=== PATIENT | female | born 1985 | race Caucasian/White ===

== ENCOUNTER 2018-07-07 21:20 | Inpatient (IN) ==
--- NOTE | 2018-07-07 22:33 | ED ---
History of Present Illness Primary Care Physician: NOT REQUIRED Chief Complaint: flu/abd pain History of Present Illness: Pt is a 32y/o @ 37.0wks. She has PNC with Dr. Sethi. She presented to the hospital this evening for reported 100.5 temp and flu-like symptoms including myalgias. While in the ED, she reported abdominal pain. She was brought to triage and experienced SROM. She reports +FM. No VB. She has a h/ o PTD @ 34wks and was taking 17-OHP this . She denies any other complications with either . GBS is unknown. Weeks Gestation:: 37 Para: 1 : 3 Review of Systems All other systems reviewed negative except as stated in HPI PMFSH - Medical / Surgical Hx Neg / Unobtainable Medical Problems Denied: Yes Surgical History: No Previous Surgery - Social History I have reviewed the patient's Social History: Yes - Tobacco History Second Hand Smoke Exposure: No Tobacco Use In Past 30 Days: No Smoking Status: Never smoker - Alcohol History How Often Do You Have a Drink Containing Alcohol: Never - Substance Use History Substance History: No History of Abuse Medications and Allergies Allergies Allergy/AdvReac Type Severity Reaction Status Date / Time No Known Allergies Allergy Verified 07/07/18 22:28 Home Medications Medication Instructions Recorded Confirmed Type vit-iron fum-folic ac 1 tab PO DAILY 07/07/18 07/07/18 History [ Vitamin] Exam Vital signs: Vital Signs 07/07/18 21:59 Temperature 99.1 F Pulse Rate 92 H Blood Pressure 134/67 Narrative: General: well developed, well nourished, no acute distress HEENT: normocephalic atraumatic, extraocular movements intact, neck supple Abdomen: soft, gravid, nontender, nondistended Uterus: fundus term Extremities: full range of motion Skin: normal coloration, no rashes, no suspicious skin lesions noted Neurologic: cranial nerves 2-12 grossly intact, normal muscle tone, normal gait Psychiatric: normal mood and affect, appropriate FHTs: 150s, no accels, subtle late decelerations, moderate variability Blum: ctx q2m Cvx: /-3 Assessment and Plan - Plan 32y/o @ 37.0wks with labor, SROM, and flu-like symptoms. -- admit to L&D -- FHTs with subtle lates but moderate variability, resuscitate with IVF per inclusion internship MD -- rapid GBS collected -- pt afebrile in triage, monitor closely, consider rapid flu swab if fever -- CEFM/toco, CLD, epidural/hill PRN Dispo: Case d/w Dr. Deal, inclusion internship, who agreed with plan of care. Courtesy orders placed. He will assume care of the patient. Discharge Plan - Discharge Disposition Patient Disposition: ED Admit(ED Internal Use Only) - Physicians Team ED Provider: Umang Quintero V Primary Care Provider: NOT REQUIRED, - Rxs /Orders / Referrals /Forms Prescriptions: No Action vit-iron fum-folic ac [ Vitamin] 27 mg iron- 0.8 mg Tablet 1 tab PO DAILY - Discharge Instructions Print Language: Croatian
[2018-07-07] MEDS ORDERED: Naloxone Inj 0.4 MG/ML Vial IV.PUSH PRN (22:34)
[2018-07-07] MEDS ORDERED: Sod Chloride 0.9% Inj 1,000 ML IV.CONT PRN (22:34)
[2018-07-07] MEDS ORDERED: Sodium Chlor 0.9% Inj 500 ML IV.SIG PRN (22:34)
[2018-07-07] MEDS ORDERED: Oxytocin 30 Units/500ml Premix 30 UNITS/500 ML BAG IV.SIG ONE (22:34)
[2018-07-07] MEDS ORDERED: fentaNYL Citrate Inj 100 MCG/2 ML Ampul IV.PUSH PRN ×2 (22:34)
[2018-07-07] MEDS ORDERED: Citric Acid/Sodium Citrate Liq 30 ML UDC PO SCH (22:45)
[2018-07-07 23:13] LABS: Bacteria,Urine Rare /hpf; Bilirubin,Urine Negative (Negative); Clarity,Urine Clear (Clear); Color,Urine Straw (Yellw/Straw); Glucose,Urine (UA) Negative (Negative); Leukocyte Esterase,Urine Negative (Negative); Nitrite,Urine Negative (Negative); Specific Gravity,Urine 1.008 (1.002-1.035); Squamous Epithelial Cell,Urine <1 /hpf (0-5)
[2018-07-07 23:17] LABS: Amphetamine Urine With Conf Neg (Neg); Baso % (Auto) 0.1 % (0.0-2.0); Benzodiazepine Urine With Conf Neg (Neg); Cocaine Urine With Conf Neg (Neg); Eos # (Auto) 0.2 th/mm3 (0.0-0.4); Eos % (Auto) 1.2 % (0.0-4.0); Hematocrit 29.4 % (35.0-46.0); Hemoglobin 10.4 gm/dL (11.6-15.3); Lymph # (Auto) 1.5 th/mm3 (1.0-4.8); Lymph % (Auto) 7.5 % (9.0-44.0); Mean Corpuscular HGB Conc 35.3 % (32.0-36.0); Mean Corpuscular Hemoglobin 29.5 pg (27.0-34.0); Mean Corpuscular Volume 83.5 fL (80.0-100.0); Mean Platelet Volume 9.3 fL (7.0-11.0); Mono # (Auto) 2.1 th/mm3 (0.0-0.9); Mono % (Auto) 10.5 % (0.0-8.0); Neut # (Auto) 15.9 th/mm3 (1.8-7.7); Neut % (Auto) 80.7 % (16.0-70.0); Opiates Urine With Conf Neg (Neg); Platelet Count 273 th/mm3 (150-450); Red Blood Count 3.52 mil/mm3 (4.00-5.30); White Blood Count 19.7 th/mm3 (4.0-11.0)
[2018-07-07 23:19] LABS: Cannabinoid Urine With Conf Neg (Neg)
[2018-07-08] MEDS ORDERED: Bisacodyl 10 MG Supp RECTAL PRN (00:55)
[2018-07-08] MEDS ORDERED: Naloxone Inj 0.4 MG/ML Vial IV.PUSH PRN (00:55)
[2018-07-08] MEDS ORDERED: Zolpidem Tartrate 5 MG Tablet PO PRN (00:55)
[2018-07-08] MEDS ORDERED: Oxytocin 30 Units/500ml Premix 30 UNITS/500 ML BAG IV.CONT PRN (00:55)
[2018-07-08] MEDS ORDERED: Benzocaine 20% Top Spray 60 ML Can TOPICAL PRN (00:55)
[2018-07-08] MEDS ORDERED: Acetaminophen 325 MG Tablet PO PRN ×2 (00:55)
[2018-07-08] MEDS ORDERED: Witch Hazel 50%/Glyderin 12.5% 40 Pad Jar RECTAL PRN (00:55)
--- NOTE | 2018-07-08 01:02 | P.OP ---
Surgeon: Dilshad Deal MD Operation and Findings: Preoperative diagnosis: 1. Intrauterine at 37 weeks and 1 day 2. Labor 3. History of spontaneous delivery Postop diagnosis 1. Same as above status post Procedure 1. Term spontaneous vaginal delivery Surgeon Dr. Dilshad Deal Supervisor [employer] Mixing: [facility] labor and delivery nursing staff Findings: 1. Viable male at 12:35 AM, Apgars 8 and 9, weight 3060 g. 2. Intact placenta 3 vessel cord at 12:41 AM 3. Second-degree perineal laceration Anesthesia: 5 cc of lidocaine with epinephrine for perineal repair, no epidural Specimen: Placenta to pathology, secondary to report of maternal fever and flulike symptoms Estimated blood loss: 300 cc Fluid replacement: Lactated Ringer's and Pitocin Urine output: None recorded DVT prophylaxis: None required Antibiotics: None required Counts: correct x2 Time out done: yes Disposition: Stable to PACU Indications: 32-year-old who presented for flulike symptoms and a reported fever of 101 at home, she spontaneously ruptured in triage and was admitted and progressed without augmentation to complete, I was called to the room when she felt the urge to push. The bed was broken down and prepared for delivery. Description of procedure: The patient began pushing after the bed was broken down, the head upon was allowed to restitute naturally for delivery with a supported perineum, with gentle downward guidance the anterior shoulder was delivered followed by gentle upper guidance for the posterior shoulder, the torso and lower extremities were delivered with ease and with continued perineal support. The infant had spontaneous cry and was placed on mom's abdomen for skin to skin contact, we allowed delayed cord clamping. After the cord was clamped and cut, cord blood was obtained. Pitocin was bolused and with fundal massage the placenta was delivered, there is minimal uterine bleeding and uterus was firm. The perineum, vagina and cervix were inspected and found a second-degree that was repaired with 3-0 Vicryl in standard fashion after lidocaine was injected for anesthesia. The patient tolerated the procedure well and was left in the birthing suite with her .
--- NOTE | 2018-07-08 07:30 | P.PNOB ---
Subjective Post day: 0 Interval history: Doing well, pain controlled, no flulike symptoms, resolved after delivery, vaginal bleeding less than menses Objective Vital Signs/I&O: Vital Signs 07/07/18 21:59 07/07/18 22:00 07/08/18 00:41 Temperature 99.1 F 98.1 F Pulse Rate 92 H 100 H Respiratory Rate 20 18 Blood Pressure 134/67 108/84 07/08/18 00:45 07/08/18 00:57 07/08/18 01:18 Temperature Pulse Rate 107 H 95 H Respiratory Rate 18 Blood Pressure 142/63 H 115/54 L 07/08/18 01:30 07/08/18 01:45 07/08/18 02:42 Temperature 98.3 F Pulse Rate 91 H 89 Respiratory Rate Blood Pressure 117/59 L 116/65 07/08/18 03:00 Temperature 97.6 F Pulse Rate 103 H Respiratory Rate 18 Blood Pressure 114/70 Intake & Output 07/07/18 07/08/18 07/08/18 18:59 06:59 18:59 Intake Total 500 / 500 Balance 500 / 500 Weight 70.307 kg Intake: IV 500 / 500 Pitocin 30 Units/NS 500 ml 500 / 500 Premix 30 units In 500 ml @ 999 mls/hr IV.SIG BOLUS ONE Rx#: [id number] Result Diagrams: 07/07/18 22:30 Objective Remarks: GENERAL: Well-nourished, well-developed patient. CARDIOVASCULAR: Regular rate and rhythm without murmurs, gallops, or rubs. RESPIRATORY: Breath sounds equal bilaterally. No accessory muscle use. ABDOMEN/GI: Abdomen soft, non-tender. Fundus: Firm, non-tender at umbilicus. GENITOURINARY: Light to moderate bleeding. EXTREMITIES: No cyanosis or edema, non-tender, without signs of DVT. Medications and IVs: Active Medications Acetaminophen (Tylenol) 650 mg PO Q4H PRN PRN Reason: PAIN SCALE 1 TO 2 Acetaminophen (Tylenol) 650 mg PO Q4H PRN PRN Reason: FEVER Al Hydroxide/Mg Hydroxide (Milk Of Magnesia Liq) 30 ml PO Q12H PRN PRN Reason: Mild Constipation Benzocaine (Americaine 20% Top [place]) 1 spray TOPICAL Q4H PRN PRN Reason: For Perineum Discomfort Last Admin: 07/08/18 03:04 Dose: 1 spray Bisacodyl (Dulcolax Supp) 10 mg RECTAL DAILY PRN PRN Reason: SEVERE CONSITIPATION Diphtheria/Pertussis/Tetanus Vacc (Boostrix Vaccine Inj) 0.5 ml IM .ONCE ONE Stop: 07/08/18 16:01 Oxytocin (Pitocin 30 Units/Ns 500 Ml Premix) 30 units in 500 mls @ 100 mls/hr IV.CONT UNSCH PRN PRN Reason: Heavy bleeding Ibuprofen (Motrin) 800 mg PO Q8H PRN PRN Reason: For Cramping Last Admin: 07/08/18 07:10 Dose: 800 mg Lactulose (Lactulose Liq) 30 ml PO DAILY PRN PRN Reason: SEVERE CONSITIPATION Measles/Mumps/Rubella Vaccine Live (M-M-R Ii Vaccine Inj) 0.5 ml SQ .ONCE ONE Stop: 07/08/18 16:01 Naloxone HCl (Narcan Inj) 0.1 mg IV.PUSH Q2M PRN PRN Reason: for opiate reversal Ondansetron HCl (Zofran Odt) 4 mg PO Q6H PRN PRN Reason: NAUSEA OR VOMITING Vit/Calcium/Iron/Folic Ac (Stuartnatal Plus 3) 1 tab PO DAILY JANE Senna/Docusate Sodium (Maida-Colace) 1 tab PO BID JANE Sennosides (Senokot) 17.2 mg PO Q12H PRN PRN Reason: Moderate Constipation Sodium Chloride (Ns Flush) 2 ml IV.FLUSH BID JANE Sodium Chloride (Ns Flush) 2 ml IV.FLUSH PRN PRN PRN Reason: FLUSH AFTER USING IV ACCESS Witch Ayse/Glycerin (Tucks Pads) 1 applicatio RECTAL QID PRN PRN Reason: HEMORRHOIDS Last Admin: 07/08/18 03:04 Dose: 1 applicatio Zolpidem Tartrate (Ambien) 5 mg PO HS PRN PRN Reason: SLEEP Assessment and Plan - Plan 32-year-old 112 status post at 37 weeks and 1 day. 1. day #0: Doing well, anticipate discharge home the next 48 hours. in NICU due to tachypnea and hypoglycemia. However she states he is doing better. Discussed precautions expectations and follow-up. -Male , desires circumcision, she states she paid, will confirm tomorrow.
[2018-07-08] MEDS: Prenatal Vit/Ca/Iron/Folic Acid Tablet PO SCH (08:57)
[2018-07-08] MEDS: Senna/Docusate Sodium 8.6/50 MG Tablet PO SCH ×2 (08:58→23:32)
[2018-07-08] MEDS ORDERED: Measles/Mumps/Rubella Vaccine Inj 0.5 ML Vial SQ ONE (16:00)
[2018-07-08] MEDS ORDERED: Diphtheria/Tetanus/Pertussis Vaccine Inj 0.5 ML Syringe IM ONE (16:00)
[2018-07-08] MEDS ORDERED: Dextromethorphan Syrup 7.5 MG/5 ML UDC PO PRN (20:18)
--- NOTE | 2018-07-09 08:14 | P.PNOB ---
Subjective Post day: 1 Interval history: Doing well post unremarkable delivery in NICU for grunting. Would like discharge if baby remains in NICU and to follow in stay close. Pumping well using ice for perineum Objective Vital Signs/I&O: Vital Signs 07/08/18 19:40 Temperature 98.3 F Pulse Rate 81 Respiratory Rate 18 Blood Pressure 133/71 Result Diagrams: 07/07/18 22:30 Objective Remarks: GENERAL: Well-nourished, well-developed patient. CARDIOVASCULAR: Regular rate and rhythm without murmurs, gallops, or rubs. RESPIRATORY: Breath sounds equal bilaterally. No accessory muscle use. ABDOMEN/GI: Abdomen soft, non-tender. Fundus: Firm, non-tender at umbilicus. GENITOURINARY: Light to moderate bleeding. EXTREMITIES: No cyanosis or edema, non-tender, without signs of DVT. Medications and IVs: Active Medications Acetaminophen (Tylenol) 650 mg PO Q4H PRN PRN Reason: PAIN SCALE 1 TO 2 Acetaminophen (Tylenol) 650 mg PO Q4H PRN PRN Reason: FEVER Al Hydroxide/Mg Hydroxide (Milk Of Magnesia Liq) 30 ml PO Q12H PRN PRN Reason: Mild Constipation Benzocaine (Americaine 20% Top [place]) 1 spray TOPICAL Q4H PRN PRN Reason: For Perineum Discomfort Last Admin: 07/08/18 03:04 Dose: 1 spray Bisacodyl (Dulcolax Supp) 10 mg RECTAL DAILY PRN PRN Reason: SEVERE CONSITIPATION Dextromethorphan HBr (Robitussin La Pediatric Cough Liq) 20 mg PO Q4H PRN PRN Reason: COUGH Last Admin: 07/08/18 23:33 Dose: 7.5 mg Oxytocin (Pitocin 30 Units/Ns 500 Ml Premix) 30 units in 500 mls @ 100 mls/hr IV.CONT UNSCH PRN PRN Reason: Heavy bleeding Ibuprofen (Motrin) 800 mg PO Q8H PRN PRN Reason: For Cramping Last Admin: 07/08/18 15:53 Dose: 800 mg Lactulose (Lactulose Liq) 30 ml PO DAILY PRN PRN Reason: SEVERE CONSITIPATION Naloxone HCl (Narcan Inj) 0.1 mg IV.PUSH Q2M PRN PRN Reason: for opiate reversal Ondansetron HCl (Zofran Odt) 4 mg PO Q6H PRN PRN Reason: NAUSEA OR VOMITING Vit/Calcium/Iron/Folic Ac (Stuartnatal Plus 3) 1 tab PO DAILY [facility] Last Admin: 07/08/18 08:57 Dose: 1 tab Senna/Docusate Sodium (Maida-Colace) 1 tab PO BID [facility] Last Admin: 07/08/18 23:32 Dose: Not Given Sennosides (Senokot) 17.2 mg PO Q12H PRN PRN Reason: Moderate Constipation Sodium Chloride (Ns Flush) 2 ml IV.FLUSH BID [facility] Last Admin: 07/09/18 00:42 Dose: Not Given Sodium Chloride (Ns Flush) 2 ml IV.FLUSH PRN PRN PRN Reason: FLUSH AFTER USING IV ACCESS Witch Ayse/Glycerin (Tucks Pads) 1 applicatio RECTAL QID PRN PRN Reason: HEMORRHOIDS Last Admin: 07/08/18 03:04 Dose: 1 applicatio Zolpidem Tartrate (Ambien) 5 mg PO HS PRN PRN Reason: SLEEP Assessment and Plan - Plan 32-year-old 112 status post at 37 weeks and 1 day. 1. day #0: Doing well, anticipate discharge home the next 48 hours. [place] in NICU due to tachypnea and hypoglycemia. However she states he is doing better. Discussed precautions expectations and follow-up. -Male , desires circumcision, she states she paid, will confirm tomorrow. PPD 1 clinically mom stable for discharge counseled will cancel if can come to first floor
[2018-07-09] MEDS: Prenatal Vit/Ca/Iron/Folic Acid Tablet PO SCH (11:45)
[2018-07-09] MEDS: Senna/Docusate Sodium 8.6/50 MG Tablet PO SCH (11:45)
== END 2018-07-09 16:28 | disposition home or self-care (01) ==
LOC: HOBED 21:20 → H2E 22:36 → H1EA 07-08 02:51
PROVIDERS: ADMIT Obstetrics & Gynecology; ATTEND Obstetrics & Gynecology